=== PATIENT | female | born 1985 | race Caucasian/White ===

== ENCOUNTER 2017-10-04 13:45 | Emergency (ER) | payer OTHER ==
--- NOTE | 2017-10-04 14:31 | EDPHY ---
H & P Time Seen by Provider: 10/04/17 14:01 HPI/ROS: HPI Concerned about DVT. 32-year-old female who is currently 31 weeks presents the emergency department with complaint of pain and mild swelling behind her left knee. She states that this is been ongoing for several days. She is concerned about a DVT. No history of trauma. No fever. No other complaints. She denies any prolonged sedentary activity. No prior history of coagulation disorder or prior DVT. ROS: Constitutional: No fever, no chills. No weakness. Respiratory: No cough. No shortness of breath. Cardiac: No chest pain, no palpitations. Gastrointestinal: No abdominal pain, no vomiting, no diarrhea. Musculoskeletal: As above. Skin: No rashes. Neurological: No focal weakness or altered sensation. Past medical history: Denies any significant past medical history. Social history: Nonsmoker. Here by herself. No alcohol. Physical Exam: General Appearance: Alert, no distress. Gravid. This patient is responding to questions appropriately and in full sentences. This patient appears well- hydrated and well-nourished. Eyes: Pupils equal and round no pallor or injection. No lid edema, erythema or injection. Left lower extremity exam: Significant for mild tenderness on palpation posterior aspect of left knee. No erythema, warmth, edema. No palpable cords. Negative Mario sign. No asymmetric swelling of the left lower extremity compared to the right lower extremity. The left lower extremity is neurovascularly intact. Neurological: Motor sensory function is grossly intact. Cranial nerves are normal. Gait is normal. Skin: Warm and dry, no rashes. Musculoskeletal: Neck is supple and nontender. Extremities are symmetrical. All joints range without pain or impingement. Psychiatric: No agitation. No depression. Database: EKG: Imaging: Left lower extremity ultrasound: Negative for DVT or other significant pathology. Results were discussed with staff radiologist. Procedures: Emergency department course: Vital signs reviewed. She is mildly hypertensive. Vital signs otherwise normal. Patient sent for left lower extremity ultrasound to evaluate for DVT. She consents. 3:25 p.m., patient re-evaluated. Resting comfortably at this time. Results of ultrasound discussed with her. Repeat examination of her left lower extremity is unremarkable. She feels comfortable going home. Follow-up and return to emergency department precautions reviewed with her. All of her questions were answered. She was discharged in good condition. Differential Diagnosis: The differential diagnosis on this patient includes but is not limited to evaluate for left lower extremity DVT. DVT, cellulitis, traumatic injury unlikely. This represents a partial list of diagnoses considered. These considerations are based on history, physical exam, past history, reassessment and diagnostic testing. Smoking Status: Never smoked Constitutional: Initial Vital Signs Temperature (C) 36.8 C 10/04/17 13:47 Heart Rate 78 10/04/17 13:47 Respiratory Rate 18 10/04/17 13:47 Blood Pressure 140/74 H 10/04/17 13:47 O2 Sat (%) 98 10/04/17 13:47 O2 Delivery Mode Room Air Allergies/Adverse Reactions: No Known Allergies Allergy (Verified 10/04/17 13:50) Home Medications: Medication Instructions Recorded 10/04/17 Vitamin D3 10/04/17 Medical Decision Making - Diagnostics Imaging Results: Imaging Impressions Extremity Venous Study 10/04/17 14:03 Impression: Negative for left lower extremity DVT. Findings and recommendations discussed with Wanda Goff MD at 1448 hour, 10/04/2017. Departure - Departure Disposition: Home, Routine, Self-Care Clinical Impression: Evaluate for DVT Condition: Good Instructions: Deep Vein Thrombosis (ED) Additional Instructions: Read and follow provided instructions. Follow-up with your primary care physician on Saturday as needed. Return to the emergency department for worsening symptoms, pain, shortness of breath or other serious concerns. Referrals: Lynnette Pyle MD [Primary Care Provider] - As per Instructions
[2017-10-04 15:40] VITALS: BP 119/70
== END 2017-10-04 15:40 | disposition home or self-care (01) ==
DX: O26.893 Other specified pregnancy related conditions, third trimester (principal); Z3A.31 31 weeks gestation of pregnancy

== ENCOUNTER 2017-12-03 11:50 | Inpatient (IN) | payer OTHER ==
[2017-12-03] MEDS ORDERED: LIDOCAINE 1% 300 MG/30 ML SDV ONE (13:09)
[2017-12-03] MEDS ORDERED: OLIVE OIL 118 ML BTL ONE (13:09)
[2017-12-03] MEDS ORDERED: MISOPROSTOL 200 MCG TAB ONE (13:10)
[2017-12-03] MEDS ORDERED: TERBUTALINE SULFATE 1 MG/ML VIAL ONE (13:10)
[2017-12-03] MEDS ORDERED: AMMONIA AROMATIC 1 EACH AMP IH ONE (13:10)
[2017-12-03] MEDS ORDERED: OXYTOCIN 10 UNIT/ML VIAL ONE (13:10)
[2017-12-03] MEDS ORDERED: IBUPROFEN 600 MG TAB PO PRN (13:18)
[2017-12-03] MEDS ORDERED: TERBUTALINE SULFATE 1 MG/ML VIAL IV PRN (13:18)
[2017-12-03] MEDS ORDERED: AMMONIA AROMATIC 1 EACH AMP IH PRN (13:18)
[2017-12-03] MEDS ORDERED: MISOPROSTOL 200 MCG TAB PO PRN (13:18)
[2017-12-03] MEDS ORDERED: LR 1,000 ML IV PRN (13:18)
[2017-12-03] MEDS ORDERED: LIDOCAINE 1% 300 MG/30 ML SDV SC PRN (13:18)
[2017-12-03] MEDS ORDERED: OLIVE OIL 118 ML BTL MISC PRN (13:18)
[2017-12-03] MEDS ORDERED: EPSOM SALT 454 GM TP PRN (13:18)
[2017-12-03] MEDS ORDERED: OXYTOCIN/RINGERS LACTATE 1,000 ML IV PRN (13:18)
--- NOTE | 2017-12-03 13:49 | GHP ---
DATE OF ADMISSION: 12/03/2017 ADMITTING DIAGNOSES: 1. Intrauterine at 40 weeks 2 days. 2. Active labor. HISTORY OF PRESENT ILLNESS: The patient is a 32-year-old, 1, para 0, at 40 weeks, 2 days with an estimated due date 12/01/2017, by ultrasound at 10 weeks and 4 days. The patient presents to Labor and Delivery with complaints of contractions that started yesterday. They have been progressively getting closer and and the contractions are every 3 to 4 minutes. Denies any leakage of fluid, or vaginal bleeding. She does state discharge is pink and has become more watery. Good movement noted. Patient has good care at [facility] and presented in her first trimester at 10 weeks. The patient had negative NIPT. On 20-week scan she had a complete posterior previa , which resolved on 29-week ultrasound revealing placenta 3.5 cm from the os. The patient has a history of depression, not taking any medications currently. She developed anemia of and is tolerating iron. She received Tdap during the . GBS culture is negative. PAST OB HISTORY: This is the patient's first . GYNECOLOGIC HISTORY: Age of menarche is 12. Cycles are irregular. Questionable last menstrual period 03/08/2017; she also had bleeding on 2016. The patient has a history of abnormal Pap smear in 2003, and had a colposcopy but no treatment. Subsequent Pap smears are all negative. 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 The patient denies exposure to any other STDs. CURRENT MEDICATIONS: vitamins, vitamin D3, DHA. ALLERGIES: The patient has no known drug allergies. PAST MEDICAL HISTORY: Remarkable for depression and hyperlipidemia. PAST SURGICAL HISTORY: Thompson teeth extraction and colposcopy. FAMILY HISTORY: Unremarkable. REVIEW OF SYSTEMS: A 10-point review of systems is negative. Pertinent positives noted in HPI. LABS: First trimester H and H were 13.6 and 38.9, platelets 216. Blood type A positive, antibody negative. RPR non-reactive. Rubella immune. Hepatitis B surface antigen negative. HIV negative. Standard panel negative. UA and culture negative. Pap test negative. H and H 3rd trimester 12 and 35.4. One-hour Glucola 109. GBS is negative. PHYSICAL EXAMINATION: VITAL SIGNS: On admission, vital signs are stable. Patient is afebrile at 37.1, heart rate 80, respirations 18, blood pressure 129/ 86, repeat blood pressure 129/77. The patient is a well-nourished, well- developed female. Alert and oriented x3. No apparent distress. SKIN: Warm, dry without rashes. NEURO: Grossly intact. CARDIOVASCULAR: Regular rate and rhythm. LUNGS: Clear to auscultation with normal breath sounds. ABDOMEN: Gravid, soft, nontender. PELVIC: She was found to be 8 cm dilated, 100% effaced, +1 station. Intact. Cephalic. EXTREMITIES: Normal to inspection without calf tenderness or edema. heart tones reveal a Category 1 strip with a baseline of 130 beats per minute. Positive accelerations. No decelerations. Moderate variability. On toco, the patient is kevon every 3 to 4 minutes. ASSESSMENT/PLAN: Patient is a 32-year-old 1, para 0, at 40 weeks 2 days who presents in active labor. 1. Admit to Labor and Delivery for expectant management. 2. GBS culture is negative, so no prophylactic antibiotics are needed. 3. The patient is interested in nitrous when contractions get painful. 4. Anticipate spontaneous vaginal delivery. /[id number]/MODL MTDD
[2017-12-03 14:00] LABS: PLATELET COUNT 198 10^3/uL (150-400)
--- NOTE | 2017-12-03 14:30 | OBPROG ---
Labor Progress Note Assessment/Plan: Assessment: 32 y/o @ 40 2/7 weeks in active labor Plan: Continue expectant management Pt is up ambulating in room AROM - small amount pink-tinged fluid FHTs - Cat I tracing, reassuring Pt is interested in nitrous at this time Anticipate 12/03/17 14:27 Subjective/Intrapartum Course: 12/03/17 14:28 Pt is up ambulating in room. Contractions are starting to get more uncomfortable. Objective: 12/03/17 13:45 - SVE Dilation (cm): 9 Effacement (%): 100 Station: +1 Membranes: AROM Amniotic Fluid Color: Clear (small amount of pink-tinged fluid) - Contraction Pattern Assessment Current Contraction Pattern: Regular (q 3-4 min) - FHR Assessment Smith FHR (bpm): 130 FHR Pattern Variability: Moderate FHR Category: 1 - Procedures Non-surgical Procedures: Amniotomy - AP Antepartum Course: 12/03/17 14:30 IUP @ 40 2/7 weeks. NIPT neg. Complete previa that resolved on 29 week u/s. GBS negative. Oxytocin Orders Assessment - Pre-Induction/Augmentation Assessment Gestational Age: 40 week(s) and 2 day(s) ICD10 Worksheet Patient Problems: Problems Problem Status Onset Normal labor Acute - ICD10 Problem Qualifiers (1) Normal labor
[2017-12-03] MEDS ORDERED: SIMETHICONE 80 MG TAB CHEW PO PRN (16:57)
[2017-12-03] MEDS ORDERED: oxyCODONE IR 5 MG TAB PO PRN (16:57)
[2017-12-03] MEDS ORDERED: HYDROCORTISONE 0.5% CREAM TP PRN (16:57)
--- NOTE | 2017-12-03 17:01 | OBDEL ---
Info Type: Vaginal Presentation at Delivery: Vertex (CHRISTIANA-compound) L&D Analgesia/Anesthesia Type: None GBS+: No Intrapartum Medications: Discontinued Medications Generic Name Dose Route Start Last Admin Trade Name Jose D PRN Reason Stop Dose Admin Ibuprofen 600 mg 12/03/17 13:18 12/03/17 16:36 Motrin PO 600 mg ONCE PRN Administration post , pain - Hospital Course Intrapartum: 12/03/17 14:28 Pt is up ambulating in room. Contractions are starting to get more uncomfortable. Indications for Delivery: Spontaneous Labor Vaginal Delivery - Delivery Provider Delivery Physician/CNM: Ambar Clark - Labor and Delivery Onset of Contractions Date: 12/03/17 Onset of Contractions Time: 07:00 Onset of Contractions Type: Spontaneous Rupture of Membranes Date: 12/03/17 Rupture of Membranes Time: 14:15 Rupture of Membranes Type: Artificial Amniotic Fluid Color: Clear (small amount of pink-tinged fluid) Dilation Complete Date: 12/03/17 Dilation Complete Time: 14:55 Placenta Delivery Date: 12/03/17 Placenta Delivery Time: 15:53 Total Hours of Labor: 8 Non-surgical Procedures: Amniotomy Laceration: 2nd Degree, Other (Specify) (b/l periurethral lacs that were not repaired) Repair: 3-0, Vicryl Vaginal Sponge Count Correct: Yes Vaginal Needle Count Correct: Yes Vaginal Sweep Performed: Yes EBL: 350 cc Delivery Events: None Delivery Comment: No complications Data JANEE: 12/01/17 Gestational Age: 40 week(s) and 2 day(s) Smith Delivery Date: 12/03/17 Delivery Time: 15:46 Sex of : Female Score (1 Min): 8 Score (5 Min): 9 ICD10 Worksheet Patient Problems: Problems Problem Status Onset Normal labor Acute (spontaneous vaginal delivery) Acute - ICD10 Problem Qualifiers (1) Normal labor (2) (spontaneous vaginal delivery)
[2017-12-03] MEDS: ACETAMINOPHEN 325 MG TAB PO SCH (21:15)
[2017-12-04] MEDS: DOCUSATE SODIUM 100 MG CAP PO PRN ×2 (01:08→16:42)
[2017-12-04] MEDS: IBUPROFEN 600 MG TAB PO SCH ×4 (01:09→19:17)
[2017-12-04] MEDS: ACETAMINOPHEN 325 MG TAB PO SCH ×4 (01:34→19:17)
--- NOTE | 2017-12-04 12:35 | OBPP ---
Progress Note Assessment/Plan: Assessment: PPD 1 s/p Plan: routine care 12/04/17 12:31 Subjective/ Course: 12/04/17 12:33 Pt doing well. Baby has latched several times but some discomfort and per - the latch might be too shallow. Bld has decreased some and able to urinate fine. ibu prn is managing discomfort. earlier thought about d/c today but now wants to stay. Objective: 12/03/17 13:45 Patient ABO/Rh A POSITIVE 12/03/17 13:45 Temp Pulse Resp BP Pulse Ox 36.6 C 79 16 116/75 98 12/04/17 07:30 12/04/17 07:30 12/04/17 07:30 12/04/17 07:30 12/04/17 07:30 Uterine Position/Fundal Height: Umbilicus -1 Uterine Tone: Firm Physical Exam - Physical Exam Abdomen: non-tender, soft, other (FF at umb -1) Extremities: non-tender, pedal edema (minimal) Skin: normal color, warm/dry Neuro/Psych: alert, normal mood/affect
[2017-12-05] MEDS: ACETAMINOPHEN 325 MG TAB PO SCH ×2 (01:14→06:47)
[2017-12-05] MEDS: IBUPROFEN 600 MG TAB PO SCH ×3 (01:18→11:51)
[2017-12-05 09:29] VITALS: BP 112/77
--- NOTE | 2017-12-05 11:22 | OBPP ---
Progress Note Assessment/Plan: Assessment: 32 y/o PPD #2 s/p doing well. Plan: D/c home with follow-up @ [facility] 4 and 6 weeks. 12/05/17 11:22 Subjective/ Course: 12/04/17 12:33 Pt doing well. Baby has latched several times but some discomfort and per - the latch might be too shallow. Bld has decreased some and able to urinate fine. ibu prn is managing discomfort. earlier thought about d/c today but now wants to stay. 12/05/17 11:20 Pt is doing well today. She has good pain control with Ibuprofen. She has min lochia and is ambulating and voiding without difficulty. She had a + BM today. Baby is doing well and her milk is coming in today. They are ready to d/c home. Objective: 12/03/17 13:45 Patient ABO/Rh A POSITIVE 12/03/17 13:45 Temp Pulse Resp BP Pulse Ox 36.8 C 80 18 112/77 97 12/05/17 09:28 12/05/17 09:28 12/05/17 09:28 12/05/17 09:28 12/05/17 09:28 Uterine Position/Fundal Height: Umbilicus -3 Uterine Tone: Firm Physical Exam - Physical Exam General Appearance: alert, no apparent distress Neck: non-tender, full range of motion, supple Respiratory: chest non-tender, lungs clear, normal breath sounds Cardiac/Chest: regular rate, rhythm Abdomen: normal bowel sounds Extremities: swelling (no), Mario's sign (neg)
--- NOTE | 2017-12-05 11:23 | OBGCSDC ---
General Delivery Information - General Info : 1 Para: 1 Abortions: 0 Type: Vaginal L&D Analgesia/Anesthesia Type: Nitrous Admission Date: 12/04/17 Labs: Patient ABO/Rh A POSITIVE 12/03/17 13:45 Hct 37.6 % (38.0-47.0) L 12/03/17 13:45 - Hospital Course Antepartum: 12/03/17 14:30 IUP @ 40 2/7 weeks. NIPT neg. Complete previa that resolved on 29 week u/s. GBS negative. Intrapartum: 12/03/17 14:28 Pt is up ambulating in room. Contractions are starting to get more uncomfortable. : 12/04/17 12:33 Pt doing well. Baby has latched several times but some discomfort and per - the latch might be too shallow. Bld has decreased some and able to urinate fine. ibu prn is managing discomfort. earlier thought about d/c today but now wants to stay. 12/05/17 11:20 Pt is doing well today. She has good pain control with Ibuprofen. She has min lochia and is ambulating and voiding without difficulty. She had a + BM today. Baby is doing well and her milk is coming in today. They are ready to d/c home. Vaginal - Delivery Provider Delivery Physician/CNM: Ambar Clark - Diagnosis Labor: Spontaneous Rupture of Membranes Type: Artificial Amniotic Fluid Color: Clear (small amount of pink-tinged fluid) Laceration: 2nd Degree, Other (Specify) (b/l periurethral lacs that were not repaired) Repair: 3-0, Vicryl Delivery Events: None - Procedures Non-surgical Procedures: Amniotomy - Delivery Non-surgical Procedures: Amniotomy EBL: 350 cc Data JANEE: 12/01/17 Gestational Age: 40 week(s) and 4 day(s) Smith Delivery Date: 12/03/17 Delivery Time: 15:46 Sex of Infant: Female Weight (gm): 3154 g Score (1 Min): 8 Score (5 Min): 9 Discharge Information - Discharge Information Prescriptions: Ibuprofen [Motrin (*)] 600 mg PO Q6H #30 tab Condition: Good Instruction/Follow Up: Four Weeks, Six Weeks
== END 2017-12-05 13:00 | disposition home or self-care (01) | DRG 775 ==
LOC: FOB 11:50 → FLD 12:13 → FOB 18:12 → OBSVTOIN 12-04 13:44
PROVIDERS: ADMIT Obstetrics & Gynecology; ATTEND Obstetrics & Gynecology
PROC: 10E0XZZ Delivery of Products of Conception, External Approach (ICD-10-PCS; principal; 2017-12-03)
PROC: 10907ZC Drainage of Amniotic Fluid, Therapeutic from Products of Conception, Via Natural or Artificial Opening (ICD-10-PCS; principal; 2017-12-03)
PROC: 0KQM0ZZ Repair Perineum Muscle, Open Approach (ICD-10-PCS; principal; 2017-12-03)
DX: O70.1 Second degree perineal laceration during delivery (principal); Z37.0 Single live birth; Z3A.40 40 weeks gestation of pregnancy
CPT/HCPCS: J2590; J3105